=== PATIENT | male | born 1995 | race Native Hawaiian/Other Pacific Islander ===

== ENCOUNTER 2024-10-20 21:41 | Emergency (ER) | payer OTHER ==
[~2024-10-20] VITALS: Ht 190.5 cm; Wt 160.5 kg
[2024-10-20 23:47] VITALS: BP 137/78; TEMP 98.8; O2SAT 94
== END 2024-10-20 23:53 | disposition home or self-care (01) ==
LOC: M ED 21:41
DX: S82.62XA Displaced fracture of lateral malleolus of left fibula, initial encounter for closed fracture (principal); X50.1XXA Overexertion from prolonged static or awkward postures, initial encounter; Y92.9 Unspecified place or not applicable; Y93.68 Activity, volleyball (beach) (court); Y99.9 Unspecified external cause status